=== PATIENT | male | born 1975 | race Hispanic/Latino ===

== ENCOUNTER 2017-11-06 02:26 | Emergency (ER) | payer OTHER ==
[2017-11-06] MEDS ORDERED: IBUPROFEN 600 MG TABLET ONE (07:31)
== END 2017-11-06 07:54 | disposition home or self-care (01) ==
LOC: EDH 02:26
DX: S39.011A Strain of muscle, fascia and tendon of abdomen, initial encounter (principal); S79.812A Other specified injuries of left hip, initial encounter; W18.39XA Other fall on same level, initial encounter; Y93.89 Activity, other specified; Y92.89 Other specified places as the place of occurrence of the external cause; Y99.8 Other external cause status
CPT/HCPCS: 73502; 73552